=== PATIENT | female | born 1985 | race Caucasian/White ===

== ENCOUNTER 2018-12-26 11:45 | Emergency (ER) | payer BC ==
[~2018-12-26] VITALS: Ht 182.9 cm; Wt 69.4 kg
[2018-12-26] MEDS ORDERED: LIDOCAINE (700MG/PATCH) PATCH. TD SCH (12:00)
[2018-12-26] MEDS ORDERED: ORPHENADRINE CITRATE 60 MG/2 ML VIAL. IM ONE (12:00)
[2018-12-26] MEDS ORDERED: methylPREDNISolone SOD SUCC PF 125 MG/2 ML VIAL. IV ONE (12:00)
--- NOTE | 2018-12-26 12:08 | PHYS DOC ---
Past Medical History Additional Past Medical Histor: ADD, Scoliosis Past Surgical History: Cholecystectomy Alcohol Use: None Drug Use: None Adult General Chief Complaint Chief Complaint: BACK PAIN OR INJURY HPI HPI 32 y/o female presents to ER for c/o sudden onset of mid low back pain when she bent over to leaf size picker her dgtr. Pt denies fall or direct trauma. She denies feeling a pop in her lower back while she was pending. Patient states she has been laying on the floor since around 9:30 AM when pain started. She denies incontinence of bowel or bladder. Patient states she took 2- 800 mg ibuprofen with minimal relief in lower back pain. She reports she had with her chiropractor and he advised on repositioning on the floor patient states she was able to roll onto her abdomen and then elevate onto her elbows. She reports the pain continued so she remained on the floor. Patient reports she is due for her menstrual cycle any day. Denies urinary symptoms, recent illness, or past history of back surgery/chronic pain. Review of Systems Review of Systems Constitutional: Denies fever or chills [] Eyes: Denies change in visual acuity, redness, or eye pain [] HENT: Denies nasal congestion or sore throat [] Respiratory: Denies cough or shortness of breath [] Cardiovascular: No additional information not addressed in HPI [] GI: Denies abdominal pain, nausea, vomiting, bloody stools or diarrhea. Denies incontinence of bowel/bladder : Denies dysuria or hematuria [] Musculoskeletal: Denies joint pain. Reports low mid back pain Integument: Denies rash or skin lesions [] Neurologic: Denies headache, focal weakness or sensory changes [] All other systems were reviewed and found to be within normal limits, except as documented in this note. Current Medications Current Medications Current Medications Medications (Trade) Dose Ordered Sig/Cheko Start Time Stop Time Status Last Admin Dose Admin Fentanyl Citrate (Fentanyl 2ml Vial) 25 mcg 1X ONCE 12/26/18 13:15 12/26/18 13:16 DC 12/26/18 13:11 25 MCG Lidocaine (Lidoderm) 1 patch DAILY 12/26/18 12:00 12/26/18 16:33 DC 12/26/18 12:08 1 PATCH Methylprednisolone Sodium Succinate (SOLU-Medrol 125MG VIAL) 125 mg 1X ONCE 12/26/18 12:00 12/26/18 12:01 DC 12/26/18 12:07 125 MG Orphenadrine Citrate (Norflex) 60 mg 1X ONCE 12/26/18 12:00 12/26/18 12:01 DC 12/26/18 12:07 60 MG Sodium Chloride 1,000 ml @ 1,000 mls/hr 1X ONCE 12/26/18 13:00 12/26/18 13:59 DC 12/26/18 13:12 1,000 MLS/HR Allergies Allergies Allergies Coded Allergies Type Severity Reaction Last Updated Verified hydromorphone Allergy Intermediate 12/26/18 Yes Physical Exam Physical Exam Constitutional: Well developed, well nourished, mild distress-anxious/tense, non-toxic appearance. [] HENT: Normocephalic, atraumatic, oropharynx moist, mucous membranes pink/dry, nose normal. [] Eyes: Pupils equal, conjunctiva normal, no discharge. [] Neck: Normal range of motion, no tenderness, supple, no stridor. [] Cardiovascular: Heart rate regular rhythm, no murmur [] Lungs & Thorax: Bilateral breath sounds clear to auscultation- resp. equal/nonlabored Abdomen: Bowel sounds normal, soft, no tenderness, no masses, no pulsatile masses. [] Skin: Warm, dry, no erythema, no rash. [] Back: Tender mid lumbar- no palp. deformity. Extremities: Pelvis stable/nontender. No tenderness, no cyanosis, no clubbing, ROM intact, no edema. 2+ bilat. dorsalis pedis/posterior tibial Neurologic: Alert and oriented X 3, normal motor function, normal sensory function, no focal deficits noted. [] Psychologic: Affect normal, judgement normal, mood anxious Current Patient Data Vital Signs Vital Signs Date Time Temp Pulse Resp B/P (MAP) Pulse Ox O2 Delivery O2 Flow Rate FiO2 12/26/18 14:30 95 15 132/82 (99) 99 Room Air 12/26/18 11:47 98.5 98.5 Lab Values Laboratory Tests Test 12/26/18 13:00 Maternal Serum HCG Beta Subunit < 1 mIU/mL (0-5) EKG EKG [] Radiology/Procedures Radiology/Procedures PROCEDURE: CT LUMBAR SPINE WO CONTRAST PQRS Compliance Statement: One or more of the following individualized dose reduction techniques were utilized for this examination: 1. Automated exposure control 2. Adjustment of the mA and/or kV according to patient size 3. Use of iterative reconstruction technique CT lumbar spine without contrast December 26, 2018 INDICATION: Low mid back pain. COMPARISON: None available. TECHNIQUE: Multiple axial CT images of the lumbar spine were obtained without intravenous contrast. Coronal and sagittal reformats are provided. FINDINGS: Alignment of the lumbar spine is normal. Minimal dextroconvex curvature of the thoracolumbar junction. Vertebral body heights are maintained. No acute fracture is identified. Spinous processes are intact. Transverse processes are intact. Sacroiliac joints are well aligned. Abdominal aorta is normal in course and caliber. Visualized kidneys are intact. No suspicious intraperitoneal abnormality. Uterus and adnexa are normal by CT. Urinary bladder is within normal limits given degree of distention. L3-L4: There is a central disc protrusion superimposed on diffuse disc bulge. There is mild facet arthropathy. There is mild bilateral neuroforaminal stenosis. Mild spinal canal stenosis. L4-L5: There is a disc bulge asymmetric to the right with right central disc protrusion. There may be narrowing of the right lateral recess. There is mild facet arthropathy. There is mild bilateral neuroforaminal stenosis. No spinal canal stenosis. L5-S1: Disc is normal in configuration. There is moderate right and mild left facet arthropathy. No significant neuroforaminal or spinal canal stenosis. IMPRESSION: No acute fracture or malalignment of the lumbar spine. Mild degenerative changes are noted, as detailed above. Electronically signed by: Narinder Marcano MD (12/26/2018 2:20 PM) [facility] DICTATED and SIGNED BY: NARINDER MARCANO MD DATE: 12/26/18 1420 Course & Med Decision Making Course & Med Decision Making Pertinent Labs and Imaging studies reviewed. (See chart for details) 1250: RN attempted to ambulate patient however patient had increased pain to lumbar spine with any movements. Will provide additional pain medicine and obtaining a CT for further evaluation. 1435: On re-exam pt is sitting up in bed eating food with husb. at bedside. Pt reports she has had improvement in pain. She remains PMS intact bilat. LEs and has no episodes of incontinence. Full ROM of bilat. LEs- she does report some pain still in lower back with movements/repositioning but states pain much improved. Pt's husb. at bedside. Discussed CT results with no acute findings. Discussed plans for home discharge with education on signs and symptoms to return to ER for. Will provide patient with prescriptions for Norflex and prednisone. Patient advised on ice and/or heat compress use as well as Tylenol and/or ibuprofen. Education provided on signs and symptoms to return to ER. Discharge instructions were discussed. Patient to follow-up with primary care physician if symptoms persist or with any concerns. Dragon Disclaimer Dragon Disclaimer This electronic medical record was generated, in whole or in part, using a voice recognition dictation system. Departure Departure Impression: Primary Impression: Back pain Additional Impression: Lumbar strain Disposition: HOME, SELF-CARE Condition: STABLE Patient Instructions: Back Pain, Adult Additional Instructions: Tylenol and/or ibuprofen as needed for pain as directed on container. Ice and/or heat compress to affected area every 3-4 hours for 20-30 minutes at a time. If not using Lidoderm patch prescription he can use [id number] topical sports cream as directed on container. Scripts Orphenadrine Citrate (ORPHENADRINE CITRATE) 100 Mg Tablet.er 1 TAB PO BID PRN for PAIN, #10 TAB 0 Refills While taking this medication no driving or drinking alcohol Prov: TIM BROWNE APRN 12/26/18 Prednisone (PREDNISONE) 20 Mg Tablet 2 TAB PO DAILY, #8 TAB 0 Refills Start 12/27/18 Prov: TIM BROWNE APRN 12/26/18 Problem Qualifiers TIM BROWNE APRN Dec 26, 2018 12:08
[2018-12-26] MEDS ORDERED: IV NORMAL SALINE 1000ML BAG 1,000 ML IV ONE (13:00)
[2018-12-26] MEDS ORDERED: fentaNYL PF VIAL 100 MCG/2 ML VIAL IV ONE (13:15)
--- NOTE | 2018-12-26 14:23 | RAD ---
PQRS Compliance Statement: One or more of the following individualized dose reduction techniques were utilized for this examination: 1. Automated exposure control 2. Adjustment of the mA and/or kV according to patient size 3. Use of iterative reconstruction technique CT lumbar spine without contrast December 26, 2018 INDICATION: Low mid back pain. COMPARISON: None available. TECHNIQUE: Multiple axial CT images of the lumbar spine were obtained without intravenous contrast. Coronal and sagittal reformats are provided. FINDINGS: Alignment of the lumbar spine is normal. Minimal dextroconvex curvature of the thoracolumbar junction. Vertebral body heights are maintained. No acute fracture is identified. Spinous processes are intact. Transverse processes are intact. Sacroiliac joints are well aligned. Abdominal aorta is normal in course and caliber. Visualized kidneys are intact. No suspicious intraperitoneal abnormality. Uterus and adnexa are normal by CT. Urinary bladder is within normal limits given degree of distention. L3-L4: There is a central disc protrusion superimposed on diffuse disc bulge. There is mild facet arthropathy. There is mild bilateral neuroforaminal stenosis. Mild spinal canal stenosis. L4-L5: There is a disc bulge asymmetric to the right with right central disc protrusion. There may be narrowing of the right lateral recess. There is mild facet arthropathy. There is mild bilateral neuroforaminal stenosis. No spinal canal stenosis. L5-S1: Disc is normal in configuration. There is moderate right and mild left facet arthropathy. No significant neuroforaminal or spinal canal stenosis. IMPRESSION: No acute fracture or malalignment of the lumbar spine. Mild degenerative changes are noted, as detailed above. Electronically signed by: Shanta Marcano MD (12/26/2018 2:20 PM) [facility]
[2018-12-26 14:30] VITALS: BP 132/82
[2018-12-26] MEDS ORDERED: ORPH100T PO (15:00)
[2018-12-26] MEDS ORDERED: PRED20TA PO (15:00)
== END 2018-12-26 15:30 | disposition home or self-care (01) ==
LOC: ER 11:45
DX: S39.012A Strain of muscle, fascia and tendon of lower back, initial encounter (principal); Z90.49 Acquired absence of other specified parts of digestive tract; Z88.5 Allergy status to narcotic agent; X50.9XXA Other and unspecified overexertion or strenuous movements or postures, initial encounter; Y93.89 Activity, other specified; Y92.89 Other specified places as the place of occurrence of the external cause; Y99.8 Other external cause status
CPT/HCPCS: 36415; 72131; 84702; 96372; 96374; 96375; 99285; J2360; J2930; J3010; J7030